=== PATIENT | male | born 1955 | race African-American/Black ===

== ENCOUNTER 2023-05-17 07:11 | Emergency (ER) | payer MEDICAID ==
[~2023-05-17] VITALS: Ht 185.4 cm; Wt 101.6 kg
[~2023-05-17 07:11] MED LIST: IBUP-2030 PO
[2023-05-17 07:21] VITALS: BP 164/87; PULSE 68; RESP 16; TEMP 98.2; O2SAT 99
[2023-05-17] MEDS ORDERED: ACETAMINOPHEN 325MG TABLET PO NR ×2 (07:45→10:15)
== END 2023-05-17 08:55 | disposition left against medical advice (07) ==
LOC: ER 07:56
DX: M25.512 Pain in left shoulder (principal); I10 Essential (primary) hypertension; Z86.73 Personal history of transient ischemic attack (TIA), and cerebral infarction without residual deficits; Z98.890 Other specified postprocedural states; V98.8XXA Other specified transport accidents, initial encounter; Y93.89 Activity, other specified; Y92.89 Other specified places as the place of occurrence of the external cause; Y99.8 Other external cause status
CPT/HCPCS: 73030; 73060; 73090; 73110; 73130; 99284